=== PATIENT | male | born 2000 | race Hispanic/Latino ===

== ENCOUNTER 2022-10-23 17:34 | Emergency (ER) | payer SELFPAY ==
[2022-10-23 18:07] LABS: Absolute Lymphocytes (CBC) 1.4 K/uL (0.7-4.9); Hematocrit 44.1 % (39.6-49.0); Lymphocytes % 10.4 % (15.3-44.8); MCV 89.1 fL (80-100); MPV 8.3 fL (7.6-11.3); RBC Red Blood Cell Count 4.94 M/uL (4.33-5.43)
[2022-10-23] MEDS ORDERED: ONDANSETRON 4 MG/2 ML VIAL ONE (18:15)
[2022-10-23] MEDS ORDERED: KETOROLAC 30 MG/ML INJ ONE (18:15)
[2022-10-23] MEDS ORDERED: NA CHLORIDE 0.9% 1,000 ML ONE (18:16)
[2022-10-23] MEDS ORDERED: FAMOTIDINE 20 MG/2 ML VIAL IV ONE (18:16)
[2022-10-23 18:24] LABS: Albumin 4.5 g/dL (3.4-5.0); Bilirubin Total 0.9 mg/dL (0.2-1.0); Potassium 3.7 mEq/L (3.5-5.1); Protein, Total 8.7 g/dL (6.4-8.2)
--- NOTE | 2022-10-23 18:42 | RAD REPORT ---
EXAM DESCRIPTION: US - Abdomen Exam Limited - 10/23/2022 6:25 pm CLINICAL HISTORY: Abdominal pain. COMPARISON: None. FINDINGS: The gallbladder wall is not thickened. A gallstone is not seen. The biliary tree is normal caliber. IMPRESSION: Unremarkable gallbladder ultrasound.
--- NOTE | 2022-10-23 19:20 | ER ---
Nurse's Notes [facility] Name: Rajeev West Age: 21 yrs Sex: Male : 2000 Arrival Date: 10/23/2022 Time: 17:34 Bed 11 Private MD: Diagnosis: Upper abdominal pain, unspecified Presentation: 10/23 17:42 Chief complaint: Patient states: sharp abd pain started today, +n/v, no diarrhea. iw Coronavirus screen: At this time, the client does not indicate any symptoms associated with coronavirus-19. Ebola Screen: Patient negative for fever greater than or equal to 101.5 degrees Fahrenheit, and additional compatible Ebola Virus Disease symptoms Patient denies exposure to infectious person. Patient denies travel to an Ebola-affected area in the 21 days before illness onset. No symptoms or risks identified at this time. Initial Sepsis Screen: Does the patient meet any 2 criteria? No. Patient's initial sepsis screen is negative. Does the patient have a suspected source of infection? No. Patient's initial sepsis screen is negative. Risk Assessment: Do you want to hurt yourself or someone else? Patient reports no desire to harm self or others. Onset of symptoms was October 23, 2022. 17:42 Method Of Arrival: Ambulatory iw 17:42 Acuity: [place] 3 iw Historical: - Allergies: 17:43 No Known Allergies; iw - Home Meds: 17:43 None [Active]; iw - PMHx: 17:43 None; iw - PSHx: 17:43 None; iw - Immunization history:: Adult Immunizations. - Social history:: Smoking status: Patient denies any tobacco usage or history of. Screenin:10 [facility] ED Fall Risk Assessment (Adult) History of falling in the last 3 months, nj1 including since admission No falls in past 3 months (0 pts) Confusion or Disorientation No (0 pts) Intoxicated or Sedated No (0 pts) Impaired Gait No (0 pts) Mobility Assist Device Used No (0 pt) Altered Elimination No (0 pt) Score/Fall Risk Level 0 - 2 = Low Risk Oriented to surroundings, Maintained a safe environment, Hourly rounding (assess needs \T\ fall precautionary measures) done. Abuse screen: Denies threats or abuse. Denies injuries from another. Nutritional screening: No deficits noted. Tuberculosis screening: No symptoms or risk factors identified. Assessment: 18:10 General: Appears in no apparent distress. comfortable, Behavior is calm, cooperative, nj1 appropriate for age. 18:10 Pain: Complains of pain in abdomen Pain currently is 7 out of 10 on a pain scale. nj1 Quality of pain is described as sharp, Pain began 5 hours ago Is intermittent. Neuro: Level of Consciousness is awake, alert, obeys commands, Oriented to person, place, time, situation. Cardiovascular: Patient's skin is warm and dry. Respiratory: Airway is patent Respiratory effort is even, unlabored. GI: Reports epigastric pain. 19:29 Reassessment: Patient and/or family updated on plan of care and expected duration. Pain mb9 level reassessed. Patient is alert, oriented x 3, equal unlabored respirations, skin warm/dry/pink. Patient states feeling better. Patient states symptoms have improved. Vital Signs: 17:43 BP 125 / 84; Pulse 79; Resp 16; Temp 98.4; Pulse Ox 100% on R/A; Weight 66.68 kg; iw Height 5 ft. 6 in. ; Pain 7/10; 19:29 BP 127 / 76; Pulse 68; Resp 15; Pulse Ox 100% ; mb9 17:43 Body Mass Index 23.73 (66.68 kg, 167.64 cm) iw 17:43 Pain Scale: Adult iw ED Course: 17:39 Patient arrived in ED. mr 17:40 Osorio Villarreal PA is PHCP. cp 17:41 Osorio Najera MD is Attending Physician. cp 17:41 PHCP role handed off by Osorio Villarreal PA kb 17:41 Carole Victor FNP-C is PHCP. kb 17:43 Triage completed. iw 17:43 Arm band placed on. iw 17:52 Inserted saline lock: 20 gauge in left antecubital area, using aseptic technique. iw 17:52 CBC with Diff Sent. iw 17:52 CMP Sent. iw 17:52 Lipase Sent. iw 18:03 Lisa Nobles, RN is Primary Nurse. nj1 18:12 Patient has correct armband on for positive identification. Bed in low position. Call nj1 light in reach. Adult w/ patient. 18:27 Abdomen Limited US In Process Unspecified. EDMS 19:29 No provider procedures requiring assistance completed. IV discontinued. IV mb9 discontinued, intact, bleeding controlled, No redness/swelling at site. Pressure dressing applied. Administered Medications: 18:12 Drug: NS 0.9% IV 1000 ml Route: IV; Rate: 1 bolus; Site: left antecubital; nj1 18:12 Drug: TORadol - Ketorolac IVP 15 mg Route: IVP; Site: left antecubital; nj1 18:13 Drug: Ondansetron IVP 4 mg Route: IVP; Site: left antecubital; nj1 18:15 Drug: Famotidine IVP 20 mg Route: IVP; Site: left antecubital; nj1 Outcome: 19:20 Discharge ordered by . deborah 19:29 Discharged to home ambulatory. mb9 19:29 Condition: stable 19:29 Discharge instructions given to patient, Instructed on discharge instructions, follow up and referral plans. Demonstrated understanding of instructions, follow-up care, medications, Prescriptions given X 2. 19:29 Patient left the ED. mb9 Signatures: Dispatcher [employer] EDMS Carole Victor, CREDIT CARD CONTROL CLERK-C CREDIT CARD CONTROL CLERK-Shanita Zaman Irene, RN RN Osorio Heaton PA PA cp Breneman, Mary Beth, RN RN mb9 Lisa Nobles, RN RN nj1
--- NOTE | 2022-10-23 19:20 | EDPHYS ---
Physician Documentation [facility] Name: Rajeev West Age: 21 yrs Sex: Male : 2000 Arrival Date: 10/23/2022 Time: 17:34 Bed 11 Private MD: ED Physician Osorio Najera HPI: 10/23 20:33 This 21 yrs old Male presents to ER via Ambulatory with complaints of kb Abdominal Pain. 20:33 The patient presents with abdominal pain in the epigastric area. Onset: The kb symptoms/episode began/occurred today. The symptoms do not radiate. Associated signs and symptoms: Pertinent positives: nausea and vomiting, Pertinent negatives: diarrhea, fever. The symptoms are described as constant. Modifying factors: The symptoms are alleviated by nothing, the symptoms are aggravated by nothing. Severity of pain: At its worst the pain was moderate in the emergency department the pain is unchanged. The patient has not experienced similar symptoms in the past. The patient has not recently seen a physician. Historical: - Allergies: 17:43 No Known Allergies; iw - Home Meds: 17:43 None [Active]; iw - PMHx: 17:43 None; iw - PSHx: 17:43 None; iw - Immunization history:: Adult Immunizations. - Social history:: Smoking status: Patient denies any tobacco usage or history of. ROS: 20:33 Constitutional: Negative for fever, chills, and weight loss. kb 20:33 Abdomen/GI: Positive for abdominal pain, nausea and vomiting, Negative for diarrhea, constipation. 20:33 All other systems are negative. Exam: 20:33 Constitutional: This is a well developed, well nourished patient who is awake, alert, kb and in no acute distress. Head/Face: Normocephalic, atraumatic. ENT: Moist Mucous membranes Cardiovascular: Regular rate and rhythm with a normal S1 and S2. No gallops, murmurs, or rubs. No pulse deficits. Respiratory: Respirations even and unlabored. No increased work of breathing. Talking in full sentences Skin: Warm, dry with normal turgor. Normal color. MS/ Extremity: Pulses equal, no cyanosis. Neurovascular intact. Full, normal range of motion. Neuro: Awake and alert, GCS 15, oriented to person, place, time, and situation. Moves all extremities. Normal gait. 20:33 Abdomen/GI: Inspection: abdomen appears normal, Bowel sounds: normal, Palpation: soft, in all quadrants, mild abdominal tenderness, in the epigastric area. Vital Signs: 17:43 BP 125 / 84; Pulse 79; Resp 16; Temp 98.4; Pulse Ox 100% on R/A; Weight 66.68 kg; iw Height 5 ft. 6 in. ; Pain 7/10; 19:29 BP 127 / 76; Pulse 68; Resp 15; Pulse Ox 100% ; mb9 17:43 Body Mass Index 23.73 (66.68 kg, 167.64 cm) iw 17:43 Pain Scale: Adult iw MDM: 17:44 Patient medically screened. kb 20:35 Differential diagnosis: cholecystitis, Cholelithiasis, gastritis, gastroesophageal kb reflux disease, non-specific abd pain, pancreatitis. Data reviewed: vital signs, nurses notes. Counseling: I had a detailed discussion with the patient and/or guardian regarding: the historical points, exam findings, and any diagnostic results supporting the discharge/admit diagnosis, lab results, radiology results, the need for outpatient follow up, a family practitioner, to return to the emergency department if symptoms worsen or persist or if there are any questions or concerns that arise at home. 10/23 17:44 Order name: CBC with Diff kb 10/23 17:44 Order name: CMP; Complete Time: 18:37 kb 10/23 17:44 Order name: Lipase; Complete Time: 18:37 kb 10/23 17:44 Order name: Abdomen Limited US; Complete Time: 18:45 kb 10/23 17:44 Order name: IV Saline Lock; Complete Time: 17:52 kb 10/23 17:44 Order name: Labs collected and sent; Complete Time: 17:52 kb Administered Medications: 18:12 Drug: NS 0.9% IV 1000 ml Route: IV; Rate: 1 bolus; Site: left antecubital; nj1 18:12 Drug: TORadol - Ketorolac IVP 15 mg Route: IVP; Site: left antecubital; nj1 18:13 Drug: Ondansetron IVP 4 mg Route: IVP; Site: left antecubital; nj1 18:15 Drug: Famotidine IVP 20 mg Route: IVP; Site: left antecubital; nj1 Disposition Summary: 10/23/22 19:20 Discharge Ordered Location: Home kb Condition: Stable kb Diagnosis - Upper abdominal pain, unspecified kb Followup: kb - With: Emergency Department - When: As needed - Reason: Worsening of condition Followup: kb - With: Private Physician - When: 2 - 3 days - Reason: Recheck today's complaints, Continuance of care, Re-evaluation by your physician Discharge Instructions: - Discharge Summary Sheet kb - Abdominal Pain, Adult, [id number] kb Forms: - Medication Reconciliation Form kb - Thank You Letter kb - Antibiotic Education kb - Prescription Opioid Use kb Prescriptions: - Zofran 4 mg Oral Tablet - take 1 tablet by ORAL route every 6 hours As needed; 12 tablet; Refills: 0, kb Product Selection Permitted - dicyclomine 20 mg Oral Tablet - take 1 tablet by ORAL route 4 times per day As needed; 20 tablet; Refills: 0, kb Product Selection Permitted Signatures: Dispatcher [employer] Carole Nathan FNP-C FNP-Kendra Vasques RN JOSÉ MIGUEL Lisa Nobles RN RN nj1
[2022-10-23 19:38] VITALS: TEMP 98.4; O2SAT 100
[2022-10-23 19:39] VITALS: BP 127/76
[2022-10-23 20:04] LABS: Blood Morphology Comment NOT SEEN (NOT SEEN); Platelet Estimate ADEQ; White Blood Cell Scan OK (OK)
== END 2022-10-23 19:29 | disposition home or self-care (01) ==
LOC: ER 17:34
DX: R10.10 Upper abdominal pain, unspecified (principal)
CPT/HCPCS: 36415; 76705; 80053; 83690; 85025; J2405; J7030